=== PATIENT | male | born 1950 | race Caucasian/White ===

== ENCOUNTER 2018-06-30 06:23 | Day surgery (SDC) | payer MEDICARE, OTHER, SELFPAY ==
[2018-06-22 11:01] VITALS: BMI 23.7
[2018-06-30] VITALS (10 sets, daily range): BP systolic 114–142; BP diastolic 52–78; PULSE 74–90; RESP 11–20; TEMP 36.1–36.9; O2SAT 96–98; BMI 24.4
--- NOTE | 2018-06-30 06:00 | DI.RAD.S_ITS ---
PROCEDURE: XR KNEE LT 1TO2V INDICATIONS: prosthesis placement TECHNIQUE: 2 view(s) of the knee acquired. COMPARISON: [facility], CR, XR KNEE ARTHRITIC SERIES LT, 03/02/2018, 7:57. FINDINGS: Bones: Patient is status post knee joint arthroplasty. Hardware components are in expected positions. Visualized bony structures are intact. Soft tissues: Overlying postoperative changes are noted. IMPRESSION: Expected postoperative appearance. Dictated by: Gabriel Tavares M.D. on 06/30/2018 at 10:21 Approved by: Gabriel Tavares M.D. on 06/30/2018 at 10:23
[2018-06-30] MEDS: LACTATED RINGERS 1,000 ML 42 ML IV ×2 (06:50→09:06)
[2018-06-30] MEDS: ACETAMINOPHEN 325 MG TABLET 975 MG PO (07:01)
[2018-06-30] MEDS: CELECOXIB 200 MG CAPSULE PO (07:01)
[2018-06-30] MEDS: PREGABALIN 75 MG CAPSULE PO (07:01)
--- NOTE | 2018-06-30 07:18 | PM.PREOP ---
Pre-operative Note Interval Note Pre-op Check: Yes History & Physical Reviewed by Physician and Yes Exam Performed Changes: No
--- NOTE | 2018-06-30 07:44 | PM.OP.1 ---
Operative Date/Time/Diagnoses Date of procedure: 06/30/18 Time of procedure: 09:20 Pre-op diagnosis: Left knee osteoarthritis Post-op diagnosis: same Procedure & Clinicians Procedure: Left total knee replacement Same procedure as scheduled: Yes Indications: The patient has had progressively worsening left knee pain with radiographic changes consistent with arthritis. Non-operative management has failed and the patient has requested total knee replacement. The risks, benefits and alternatives to surgery were discussed with the patient prior to proceeding. Risks discussed included, but were not limited to, failure to relieve pain, stiffness, infection, nerve damage, deep venous thrombosis, pulmonary embolism, stroke, coma, heart attack, permanent paralysis and , as well as the potential need for eventual revision of the prosthetic. Surgeon: Cristóbal Dukes Medicare Specialist: Dahiana Narayanan Click Yes if Unassisted: No Anesthesia Type: General, Spinal and Local Operative Notes Findings: Severe medial compartment osteoarthritis with moderate patellofemoral changes. The patient also had a moderate amount of varus in the tibial shaft. Closure Type: primary Specimen(s): none sent Implants & Drains: Implants used in this procedure were manufactured by the [employer] and included the BCS II Journey total knee replacement with a size 6 left non porous tibial base plate, a size 7 left Oxinium femoral component, a 9 mm cross-linked polyethylene tibial insert and a 38 mm oval Griselda II patellar component. Applied: implant(s) Estimated Blood Loss (mL): 50 Blood products transfused: none Tourniquet time (min): 57 Procedure in detail: The patient was seen in the pre-operative area, where the left knee was identified as the operative site and this was marked with my initials. The patient received pre-operative antibiotics, and was taken to the operating room and placed on the operative table in the supine position. After satisfactory anesthesia, a real time analyst out? was performed. The left leg was encircled with a tourniquet about the proximal thigh, and the leg was prepared from the toes to the tourniquet with ChloroPrep in the usual fashion and draped through sterile drapes. The leg was elevated and exsanguinated with Eschmark bandage and the tourniquet inflated to 250 mmHg pressure. The knee was approached through an approximately 18 cm incision centered over the patella and carried into the knee through a medial parapatellar arthrotomy. The anterior osteophytes and soft tissues were removed. The rotational landmarks of Nottoway's line and the transepicondylar axis were marked on the femur with electrocautery, and intramedullary guide holes for the femur and tibia were created. The distal femoral cut was made in 6 degrees of valgus using the intramedullary guide at the primary cut setting. The proximal tibial cut was then made using the intramedullary guide, taking 9 mm of bone off the less involved side. The extension gap was checked and the rotation of the femoral component confirmed with the gap balancing blocks. The anterior, posterior and chamfer cuts were then made. The posterior osteophytes and soft tissues were then removed. The posterior capsule was injected with part of a mixture of 50 ml 0.25% Marcaine mixed with 20 ml Exparel and 4 mg of morphine for post-operative pain control. The remainder of this mixture was injected into the capsule and subcutaneous tissues during cement curing. The tibia was prepared with the rotation set by an extra medullary guide. Trial tibial and femoral components were then placed and the intercondylar notch cut through the femoral trial. Range of motion was 0-135 degrees, with good stability throughout the range. The patella was then cut to accommodate the patellar prosthetic. There was no need for a lateral release. The trials were then removed, and the femoral hole plugged with a bone plug. The bone was prepared with pulsatile lavage, and dried with a sponge. Cement was applied and the final prosthetics placed. Excess cement was removed during and after cement curing. After confirming there was no extruded cement posteriorly, the final tibial insert was placed. The knee was copiously irrigated and the tourniquet deflated. Hemostasis was obtained. The capsule was closed with interrupted # 2 polyester sutures. The subcutaneous layer was closed with 3-0 Vicryl, and the skin with a running 3-0 V-Lock suture and SteriStrips. An Aquacel Ag dressing was applied and the patient was taken to recovery having tolerated the procedure well. Complications: none Condition: stable Disposition: PACU Plan for aftercare: The patient will be maintained on a standard total knee replacement protocol with weight bearing as tolerated. The patient will receive aspirin and sequential compression devices for DVT prophylaxis. The patient will be discharged home when safe for the home environment.
[2018-06-30] MEDS: CEFAZOLIN 2 GM/100 ML FROZ.PIGGY IV (07:46)
[2018-06-30] MEDS: TRANEXAMIC ACID 1,000 MG VIAL 1000 MG INJ ×2 (08:03→09:05)
--- NOTE | 2018-06-30 08:14 | SUR.OPER ---
Supine on padded OR bed. Pillow under head, arms secured on padded armboards <90 degree abduction. Safety belt across torso. Non-operative leg secured with tape over blanket over lower leg. Operative leg secured in DeMayo/Derrick positioner. Foam padded brace at thigh of operative leg.
[2018-06-30] MEDS: BUPIVACAINE 0.25% W/ EPI VIAL 50 ML INJ (08:27)
[2018-06-30] MEDS: BUPIVACAINE LIPOSOME 266 MG/20 ML VIAL INJ (08:27)
[2018-06-30] MEDS: MORPHINE 4 MG/ML INJ INJ (08:28)
[2018-06-30] MEDS: HYDROMORPHONE 2 MG INJ 0.5 MG IV ×2 (09:44→09:54)
--- NOTE | 2018-06-30 11:01 | SUR.PHASEI ---
to bedside, patient A&O, comfortable, pleasant, cheerful. No pain, No N&V. Food/fluids given while waiting transfer to floor. PT notified of pending patient care.
--- NOTE | 2018-06-30 11:50 | SUR.PHASEI ---
A&O, denies pain, sitting up in bed, water given. L knee dressing remains CDI. Ice behind knee. CMS - good motion/sensation, brisk capillary refill. states, I'm pumping them referring to feet. Anxious to return to normal. Denies pain/nausea.
--- NOTE | 2018-06-30 12:23 | SUR.PHASEI ---
pt given urinal, and another glass of water, states he has no other complaints.
--- NOTE | 2018-06-30 13:30 | PT.IIE ---
Current Diagnoses Bilateral primary osteoarthritis of knee (06/30/18) Surgery Performed Operation Date: 06/30/18 07:45 Actual Procedures p Total Knee Arthroplasty(Left) - Cristóbal Dukes MD Surgical History (Last Updated 06/22/18 @ 11:21 by Cindy Castano RN) Hx of right hemicolectomy (Acute) S/P cervical spinal fusion (Acute) Medical History (Last Updated 06/22/18 @ 11:21 by Cindy Castano RN) Asthma (Acute) HTN (hypertension) (Acute) Hyperlipidemia (Acute) Neuropathy (Acute) Physical Therapy Inpatient Evaluation/Re-Eval M1 PT/OT-IP Prior Functional Status Start: 06/30/18 13:18 Freq: Status: Active Protocol: Document 06/30/18 13:19 RS (Rec: 06/30/18 13:30 RS [email or web address]) Medical Review Prior Functional Status Medical History Reviewed Yes Diet/Fluid Consistency Regular Communication no known deficits Mobility and Gait ind without AD Activities of Daily Living and IADL's no issues Prior Functional Level (Other details) denies falls, drives, retired Social History Household Members spouse Living Arrangements House Number of Floors (Floors) One Floor Number of Stairs To Enter/Railing? no stairs Home Environment Standard Height Toilet Walk in Shower Home Equipment Front Wheel Walker Employment Status Retired Additional Social History Comment will be providing 24/7 assist M2 PT-IP Current Condition Start: 06/30/18 13:18 Freq: Status: Active Protocol: Document 06/30/18 13:19 RS (Rec: 06/30/18 13:30 RS [email or web address]) Physical Therapy Current Condition Current Condition Evaluation Date 06/30/18 Treatment Diagnosis L TKA Onset Date 06/30/18 Weight Bearing Status Weight Bearing Status Weight Bear as Tolerated M3 PT-IP Subjective Start: 06/30/18 13:18 Freq: Status: Active Protocol: Document 06/30/18 13:19 RS (Rec: 06/30/18 13:30 RS [email or web address]) Subjective Physical Therapy Visit Type Type Initial Evaluation Visit Start Time 12:53 Visit Stop Time 13:18 Total Visit Minutes 25 Physical Therapy Visit Comments Patient Comments Pt reports minimal pain, has been having a little dizziness coming off anesthesia but is otherwise motivated to get up. Patient Goals go home today Therapy Pain Assessment Pain When Pain Assessed At Rest Pain Present Pain Present Denied Pain M4 PT-IP Mobility and Gait Start: 06/30/18 13:18 Freq: Status: Active Protocol: Document 06/30/18 13:19 RS (Rec: 06/30/18 13:30 RS [email or web address]) PT-Bed Mobility Assessment Supine to Sit Supine to Sit Independent Sit to Supine Sit to Supine Independent PT-Transfer Assessment Sit to and From Stand Sit to and from Stand Independent Equipment Transfer Assistive Device Front Wheeled Walker Transfers Transfer Destination Bed Transfer Technique wakled Transfer Ability Level of Assist Independent Gait Assessment Gait Gait Assistance Required: Independent Distance (Feet) 125 Assistive Devices Assistive Device Front Wheeled Walker Gait Deviations General Gait Pattern Antalgic Decreased Stride Length Step-to Gait Stair Climbing Assessment Comments Stair Climbing Comments not needed to perform PT-Balance Assessment Sitting Balance and Reactions Static Sitting Balance Ability Normal Dynamic Sitting Balance Ability Normal Standing Balance and Reactions Static Standing Balance Ability Normal Dynamic Standing Balance Ability Good Device Used FWW M5 PT-IP Objective Assessments Start: 06/30/18 13:18 Freq: Status: Active Protocol: Document 06/30/18 13:19 RS (Rec: 06/30/18 13:30 [email or web address]) Orientation Orientation/Cognition Level of Alertness Alert Orientation Name Age Birthday Month Date Year Day of Week Place Situation Language Function Ability No Deficits Noted Safety Awareness Understands Safety Issues Memory Description No Deficits Noted Gross Range of Motion Upper Extremity ROM Assessment Within Functional Limits Lower Extremity ROM Assessment Left Impaired Strength Upper Extremity Strength Assessment Within Functional Limits Lower Extremity Strength Assessment Left Impaired Sensation Assessment Sensation Gross Sensation WNL Light Touch Intact M6 PT-IP Treatment Start: 06/30/18 13:18 Freq: Status: Active Protocol: Document 06/30/18 13:19 RS (Rec: 06/30/18 13:30 [email or web address]) Physical Therapy Treatment Exercises Exercises Ankle Pumps Quad Sets Heel Slides Knee ROM Measurement 5-80 Education Education Provided Weight Bearing Status Safety M7 PT-IP Assessment and Plan Start: 06/30/18 13:18 Freq: Status: Active Protocol: Document 06/30/18 13:19 RS (Rec: 06/30/18 13:30 [email or web address]) PT Summary Assessment and Plan Potential Rehabilitation Potential Excellent Status of Condition at Evaluation Stable Summary Impairments Bed Mobility Transfers Gait Activity Tolerance Progress Towards Goals Safe For Discharge Goals Met Assessment Summary Pt is POD#0 of L TKA and is on morales path route with planned discharge for home later today. Pt still in the PACU and recovering well per nursing. Pt is mod ind with FWW for all mobility and demonstrates compliance with HEP that he received prior to surgery. Pt is safe to discharge home today with intermittent assist from and will be participating in OPPT starting Friday. Goals Bed Mobility Goal Independent Transfer Goal Independent Gait Goal Independent Front Wheel Walker Days to Meet Goals 0 Frequency of Treatment Frequency Of Treatment Discharge Recommendations To Nursing Amount of Assist Needed Standby Assistance Discharge Recommendations PT Discharge Recommendations Home with Assistance Outpatient PT
--- NOTE | 2018-06-30 14:00 | SUR.PHASEII ---
pt did not have full admit orders and was fully recovered and discharged from [facility] per MD request. pt left in excellent spirts and was fully cleared for mobility with walker by physical therapy
== END 2018-06-30 13:30 | disposition home or self-care (01) ==
LOC: AC 09:49 → OR 14:50
PROVIDERS: Family Provider Nurse Practitioner Family; PCP Nurse Practitioner Family; Visit Provider Orthopaedic Surgery
PROC: 0SRD0JZ Replacement of Left Knee Joint with Synthetic Substitute, Open Approach (ICD-10-PCS; CPT 27447; principal; 2018-06-30 07:45)
DX: M17.12 Unilateral primary osteoarthritis, left knee (principal); I10 Essential (primary) hypertension; E78.5 Hyperlipidemia, unspecified
CPT/HCPCS: 27447; 73560; 97161; C1776; C9290; J0690; J1100; J1170; J2250; J2270; J2405; J2704; J3010